=== PATIENT | male | born 1980 | race Caucasian/White ===

== ENCOUNTER 2019-10-15 07:42 | Emergency (ER) | payer MEDICARE, MEDICAID ==
--- NOTE | 2019-10-15 07:57 | EDM.PDOC ---
ED HPI GENERAL MEDICAL PROBLEM - General Chief Complaint: Respiratory Problem Stated Complaint: SOB Time Seen by Provider: 10/15/19 07:57 Source of Information: Reports: Patient, RN, RN Notes Reviewed History Limitations: Reports: No Limitations - History of Present Illness INITIAL COMMENTS - FREE TEXT/NARRATIVE: Pt presents to ER with c/o shortness of breath. Pt is a homeless man from [facility], has Hx of ESRD on hemodialysis Monday, , and Monday. He has not had dialysis for 2 weeks. He has been living in his truck because he cannot afford rent. Pt states he got sick of dialysis and got in his truck and just drove away without a plan. He has not taken any of his medications for about 3 days. He thought he would just go away and let himself by not having dialysis, but now regrets doing that. He denies chest pain, fever, chills, cough, or any known COVID exposures. Onset: Gradual Duration: Day(s): (4-5), Constant, Getting Worse Location: Reports: Chest, Generalized Severity: Severe Improves with: Reports: None Worsens with: Reports: None Associated Symptoms: Reports: No Other Symptoms - Related Data Allergies Allergy/AdvReac Type Severity Reaction Status Date / Time No Known Allergies Allergy Verified 10/15/19 08:20 Home Meds: Home Meds Calcium Acetate [PhosLo] 2 cap PO BIDAC 10/15/19 [History] Cholecalciferol (Vitamin D3) [Vitamin D3] 1 cap PO DAILY 10/15/19 [History] Cyclobenzaprine [Flexeril] 5 mg PO TID PRN 10/15/19 [History] Escitalopram [Lexapro] 20 mg PO DAILY 10/15/19 [History] Folic Acid/Vit B Complex and C [Dialyvite] 1 tab PO DAILY 10/15/19 [History] Gabapentin [Neurontin] 300 mg PO BID 10/15/19 [History] Nortriptyline HCl [Pamelor] 50 mg PO DAILY 10/15/19 [History] Pantoprazole [ProTONIX] 40 mg PO BID 10/15/19 [History] Sennosides [Senna] 1 - 2 cap PO DAILY 10/15/19 [History] Torsemide 80 mg PO DAILY 10/15/19 [History] amLODIPine Besylate [Amlodipine Besylate] 10 mg PO DAILY 10/15/19 [History] atorvaSTATin [Lipitor] 10 mg PO DAILY 10/15/19 [History] carvediloL [Carvedilol] 50 mg PO BID 10/15/19 [History] hydrOXYzine HCL [hydrOXYzine] 25 mg PO Q6H PRN 10/15/19 [History] lisinopriL [Lisinopril] 20 mg PO DAILY 10/15/19 [History] Past Medical History Cardiovascular History: Reports: Hypertension Genitourinary History: Reports: Dialysis, Renal Disease Endocrine/Metabolic History: Reports: Obesity/BMI 30+ Social & Family History - Family History Family Medical History: Noncontributory - Living Situation & Occupation Living situation: Reports: Single, Alone Occupation: Disabled ED ROS GENERAL - Review of Systems Review Of Systems: Comprehensive ROS is negative, except as noted in HPI. ED EXAM, GENERAL - Physical Exam Exam: See Below Exam Limited By: No Limitations General Appearance: Alert, No Apparent Distress, Obese, Other (Chronically ill appearing) Eye Exam: Bilateral Eye: EOMI, Periorbital Changes (periorbital edema), PERRL Nose: Normal Inspection, Normal Mucosa, No Blood Throat/Mouth: Normal Inspection, Normal Lips, Normal Teeth, Normal Gums, Normal Oropharynx, Normal Voice, No Airway Compromise Head: Atraumatic, Normocephalic Neck: Normal Inspection, Supple, Non-Tender, Full Range of Motion. No: Lymphadenopathy (L), Lymphadenopathy (R) Respiratory/Chest: No Respiratory Distress, Lungs Clear, No Accessory Muscle Use, Chest Non-Tender, Decreased Breath Sounds Cardiovascular: Regular Rate, Rhythm, Other (+1 pitting edema) GI/Abdominal: Normal Bowel Sounds, Soft, Non-Tender Back Exam: Normal Inspection Extremities: Normal Range of Motion, Non-Tender, Pedal Edema, Other (mild venous stasis changes B/L lower legs). No: Good's Sign Neurological: Alert, Oriented, CN II-XII Intact, Normal Cognition, No Motor/Sensory Deficits Psychiatric: Depressed Mood, Flat Affect Skin Exam: Warm, Dry EKG INTERPRETATION EKG Date: 10/15/19 Time: 08:11 Rhythm: Other (SR) Rate (Beats/Min): 92 [place]: LAD-Left [place] Deviation P-Wave: Present QRS: Wide (nonspecific IVCD) ST-T: Normal QT: Normal Comparison: NA - No Prior EKG Course - Vital Signs Last Recorded V/S: Last Vital Signs Temp 97.3 F 10/15/19 07:58 Pulse 94 10/15/19 07:58 Resp 20 10/15/19 07:58 BP 185/109 H 10/15/19 07:58 Pulse Ox 100 10/15/19 07:58 - Orders/Labs/Meds Orders: Active Orders 24 hr Category Date Time Status EKG 12 Lead [EKG Documentation Completion] [RC] STAT Care 10/15/19 07:59 Active Peripheral IV Care [RC] . DIRECTED Care 10/15/19 07:59 Active Sodium Chloride 0.9% [Saline Flush] Med 10/15/19 07:59 Active 10 ml FLUSH ASDIRECTED PRN Peripheral IV Insertion Adult [OM.PC] Stat Oth 10/15/19 07:59 Ordered Medication Orders Sodium Chloride (Saline Flush) 10 ml FLUSH ASDIRECTED PRN PRN Reason: Keep Vein Open Last Admin: 10/15/19 08:36 Dose: 10 ml Documented by: HARRIET Labs: Laboratory Tests 10/15/19 10/15/19 10/15/19 Range/Units 08:23 08:23 09:04 WBC 7.1 (5.0-10.0) 10^3/uL RBC 2.75 L (4.6-6.2) 10^6/uL Hgb 9.3 L (14.0-18.0) g/dL Hct 28.9 L (40.0-54.0) % MCV 105.1 H (80-100) fL MCH 33.8 (27.0-34.0) pg MCHC 32.2 L (33.0-35.0) g/dL Plt Count 207 (150-450) 10^3/uL Neut % (Auto) 77.1 H (42.2-75.2) % Lymph % (Auto) 11.0 L (20.5-50.1) % [place] % (Auto) 6.9 (2-8) % Eos % (Auto) 4.4 H (1.0-3.0) % Baso % (Auto) 0.6 (0.0-1.0) % Sodium 141 (136-145) mmol/L Potassium 6.4 H (3.5-5.1) mmol/L Chloride 101 (98-107) mmol/L Carbon Dioxide 23 (21-32) mmol/L Anion Gap 23.4 H (7-13) mEq/L BUN 74 H (7-18) mg/dL Creatinine 19.42 H* (0.70-1.30) mg/dL Est Cr Clr Drug Dosing 5.01 mL/min Estimated GFR (MDRD) 3 BUN/Creatinine Ratio 3.8 (No establ ref range) Glucose 83 (74-99) mg/dL Calcium 6.1 L (8.5-10.1) mg/dL Phosphorus 10.7 H* (2.6-4.7) mg/dL Magnesium 1.9 (1.8-2.4) mg/dL Total Bilirubin 0.5 (0.2-1.0) mg/dL AST 19 (15-37) U/L ALT 29 (16-63) U/L Alkaline Phosphatase 145 H (46-116) U/L B-Natriuretic Peptide 1700 H (0-100) pg/ml Total Protein 7.2 (6.4-8.2) g/dL Albumin 3.2 L (3.4-5.0) g/dL Globulin 4.0 Albumin/Globulin Ratio 0.80 COVID-19 (ELIANE) Negative (NEGATIVE) Meds: Medications Generic Name Dose Route Start Last Admin Trade Name Mary PRN Reason Stop Dose Admin Sodium Chloride 10 ml 10/15/19 07:59 10/15/19 08:36 Saline Flush FLUSH 10 ml ASDIRECTED PRN Administration Keep Vein Open Discontinued Medications Generic Name Dose Route Start Last Admin Trade Name Mary PRN Reason Stop Dose Admin Calcium Chloride 1 gm 10/15/19 09:07 10/15/19 09:24 Calcium Chloride 10% IVPUSH 10/15/19 09:08 1 gm ONETIME ONE Administration Dextrose/Water 50 ml 10/15/19 09:08 10/15/19 09:24 Dextrose 50% In Water IVPUSH 10/15/19 09:09 50 ml ONETIME ONE Administration Dextrose/Water 50 ml 10/15/19 09:10 10/15/19 09:24 Dextrose 50% In Water IVPUSH 10/15/19 09:11 50 ml ONETIME ONE Administration Insulin Human Regular 10 unit 10/15/19 09:09 10/15/19 09:23 Humulin R IV 10/15/19 09:10 10 units ONETIME ONE Administration Sodium Polystyrene Sulfonate 15 gm 10/15/19 09:08 10/15/19 09:23 Kayexalate PO 10/15/19 09:09 15 gm ONETIME ONE Administration - Radiology Interpretation Free Text/Narrative:: XR Chest: B/L perihilar reticulonodular and ground glass opacities per Rad. report. - Re-Assessments/Exams Free Text/Narrative Re-Assessment/Exam: 10/15/19 09:55 [facility] in [place] is on diversion due to no beds available. Next closest hospital is [facility] where Dr. Armijo has accepted the pt. Departure - Departure Time of Disposition: 09:56 Disposition: DC/Tfer to [facility] 02 Condition: Serious Clinical Impression: ESRD on hemodialysis, Hyperkalemia, Noncompliance with renal dialysis Fluid overload Qualifiers: Hypervolemia type: other Qualified Code(s): E87.79 - Other fluid overload - Discharge Information *PRESCRIPTION DRUG MONITORING PROGRAM REVIEWED*: No *COPY OF PRESCRIPTION DRUG MONITORING REPORT IN PATIENT EDWARD: No Forms: ED Department Discharge, Interfacility Transfer EMTALA Sepsis Event Note (ED) - Focused Exam Vital Signs: Vital Signs Temp Pulse Resp BP Pulse Ox 10/15/19 07:58 97.3 F 94 20 185/109 H 100 - My Orders Last 24 Hours: My Active Orders 10/15/19 07:59 EKG 12 Lead [EKG Documentation Completion] [RC] STAT Peripheral IV Care [RC] . DIRECTED Sodium Chloride 0.9% [Saline Flush] 10 ml FLUSH ASDIRECTED PRN Peripheral IV Insertion Adult [OM.PC] Stat - Assessment/Plan Last 24 Hours: My Active Orders 10/15/19 07:59 EKG 12 Lead [EKG Documentation Completion] [RC] STAT Peripheral IV Care [RC] . DIRECTED Sodium Chloride 0.9% [Saline Flush] 10 ml FLUSH ASDIRECTED PRN Peripheral IV Insertion Adult [OM.PC] Stat
[2019-10-15] MEDS ORDERED: Sodium Chloride 0.9% 10 ML Syringe FLUSH PRN (07:59)
[2019-10-15 08:54] LABS: ANION GAP 23.4 mEq/L (7-13)
--- NOTE | 2019-10-15 08:58 | CR ---
PROCEDURE INFORMATION: Exam: XR Chest, 2 Views Exam date and time: 10/15/2019 8:36 AM Age: 39 years old Clinical indication: Other: Noncompliant dialysis patient PT with SOB; Additional info: Noncompliant dialysis PT with shortness of breath TECHNIQUE: Imaging protocol: XR of the chest Views: 2 views. COMPARISON: No relevant prior studies available. FINDINGS: Lungs: Bilateral perihilar reticulonodular and ground-glass opacities. Pleural space: Unremarkable. No pleural effusion. No pneumothorax. Heart/Mediastinum: Mild cardiomegaly. Bones/joints: Unremarkable. IMPRESSION: Bilateral perihilar reticulonodular and ground-glass opacities.
[2019-10-15] MEDS ORDERED: Calcium Chloride 10% 1 GM/10 ML Syringe IVPUSH ONE (09:07)
[2019-10-15] MEDS ORDERED: 50% Dextrose in Water 50 ML Syringe IVPUSH ONE ×2 (09:08→09:10)
[2019-10-15] MEDS ORDERED: Sodium Polystyrene Sulfonate 15 GM/60 ML Susp 60 ML Bot PO ONE (09:08)
[2019-10-15] MEDS ORDERED: Insulin Regular, Human 100 Units/ML 3 ML Vial IV ONE (09:09)
== END 2019-10-15 10:44 ==
LOC: DL.ED 07:43
DX: I12.0 Hypertensive chronic kidney disease with stage 5 chronic kidney disease or end stage renal disease (principal); N18.6 End stage renal disease; E87.5 Hyperkalemia; E87.79 Other fluid overload; E66.9 Obesity, unspecified; Z68.42 Body mass index [BMI] 45.0-49.9, adult; Z99.2 Dependence on renal dialysis; Z91.15 Patient's noncompliance with renal dialysis; Z20.828 Contact with and (suspected) exposure to other viral communicable diseases; Z79.899 Other long term (current) drug therapy
CPT/HCPCS: 36415; 71046; 80053; 83735; 83880; 84100; 85025; 93005; 93010; 96374; 96375; 99284; 99285; A9270; J1815; U0002